=== PATIENT | female | born 1935 | race Caucasian/White ===

== ENCOUNTER 2019-05-31 21:11 | Emergency (ER) | payer OTHER ==
[~2019-05-31] VITALS: Ht 154.9 cm; Wt 72.6 kg
[2019-05-31] MEDS ORDERED: IV NS 0.9% 500 ML BAG IV ONE (21:30)
--- NOTE | 2019-05-31 21:30 | NUR ---
PT brought in by EMS c/o altered. Per son pt was seen by her family last night at 1999 which was the last known well time. Per son, pt was acting normally at that time. Pt was then seen by son in bed incontinent. Pt's son mentioned how him and his sister thought she had a facial droop. Pt unable to state name or . upon assessment, pt non verbal. Unable to follow comands. Placed in gown, on monitor, and pulse ox.
--- NOTE | 2019-05-31 21:40 | NUR ---
LABS COLLECTED AND SENT.
--- NOTE | 2019-05-31 21:42 | NUR ---
PT PLACED ON PADS, MOVED TO ROOM 8. On monitor.
[2019-05-31 21:50] LABS: BASOPHILS # (AUTO) 0.2 /CMM (0.0-0.2); BASOPHILS % (AUTO) 2.4 % (0.0-2.0); EOSINOPHILS % (AUTO) 0.7 % (0.0-6.0); HEMATOCRIT 44 % (33-45); HEMOGLOBIN 14.2 g/dL (11.5-14.8); LYMPHOCYTES # (AUTO) 1.6 /CMM (0.8-4.8); LYMPHOCYTES % (AUTO) 18.7 % (20.0-44.0); MEAN CORPUSCULAR HGB CONC 32 g/dl (31.0-36.0); MEAN CORPUSCULAR VOLUME 91 fL (82-100); MONOCYTES # (AUTO) 0.5 /CMM (0.1-1.30); MONOCYTES % (AUTO) 6.3 % (2.0-12.0); NEUTROPHILS # (AUTO) 6.1 /CMM (1.8-8.9); NEUTROPHILS % (AUTO) 71.9 % (43.0-81.0); PLATELET COUNT (AUTO) 198 /CMM (150-450); RED BLOOD CELL COUNT(AUTO) 4.84 MIL/uL (4.0-5.2); WHITE BLOOD COUNT (AUTO) 8.5 K/uL (4.3-11.0)
--- NOTE | 2019-05-31 21:58 | NUR ---
UNABLE TO OBTAIN URINE.
[2019-05-31 22:06] LABS: ALANINE AMINOTRANSFERASE 19 U/L (12-78); ALBUMIN 3.8 g/dL (3.4-5.0); ALKALINE PHOSPHATASE 71 U/L (46-116); ASPARTATE AMINOTRANSFERASE 18 U/L (15-37); BILIRUBIN,DIRECT 0.1 mg/dL (0.0-0.2); BILIRUBIN,TOTAL 0.4 mg/dL (0.2-1.0); CALCIUM, SERUM 9.9 mg/dL (8.5-10.1); CARBON DIOXIDE 31 mmol/L (21-32); CHLORIDE 105 mmol/L (98-107); CREATININE 1.3 mg/dL (0.6-1.3); GLUCOSE 129 mg/dL (74-106); POTASSIUM 4.8 mmol/L (3.5-5.1); SODIUM SERUM 142 mmol/L (136-145); TOTAL PROTEIN, SERUM 7.9 g/dL (6.4-8.2); UREA NITROGEN, BLOOD 24 mg/dL (7-18)
--- NOTE | 2019-05-31 22:40 | NUR ---
PT TAKEN TO CT
--- NOTE | 2019-05-31 22:53 | NUR ---
pt back from ct
--- NOTE | 2019-05-31 23:26 | NUR ---
[facility] CALLED.
[2019-05-31 23:43] LABS: APPEARANCE,URINE Clear (CLEAR); BILIRUBIN,URINE SMALL (NEGATIVE); BLOOD, URINE Negative Ery/uL (NEGATIVE); COLOR,URINE Orange (YELLOW); KETONES,URINE Negative (NEGATIVE); LEUKOCYTE ESTERASE ,URINE Negative (NEGATIVE); NITRITE, URINE Negative (NEGATIVE); PH,URINE 5.5 (5.0-8.0); PROTEIN,URINE Negative (NEGATIVE); UGLUCOSE Negative (NEGATIVE); UROBILINOGEN,URINE 0.2 EU/dL (0.2)
--- NOTE | 2019-05-31 23:53 | NUR ---
PT RESTING. STILL NON VERBAL. DAUGHTER AT BEDSIDE.
[2019-06-01] MEDS ORDERED: IV NS 0.9% 500 ML BAG IV ONE
--- NOTE | 2019-06-01 00:34 | NUR ---
CALL FROM [facility]. PT ACCEPTED TO [facility] ER BY DR AMAYA. # FOR REPORT [phone]. [facility] ETA 013
[2019-06-01 01:27] VITALS: BP 128/51
--- NOTE | 2019-06-01 01:35 | NUR ---
Sandra cantor in [facility] - 06/01/[address] REPORT GIVEN TO
--- NOTE | 2019-06-01 01:37 | NUR ---
REPORT GIVEN TO PATRICIA PLEITEZ
== END 2019-06-01 01:38 | disposition short-term general hospital (02) ==
LOC: ER 21:17
DX: R41.82 Altered mental status, unspecified (principal); I45.9 Conduction disorder, unspecified; I10 Essential (primary) hypertension; E11.9 Type 2 diabetes mellitus without complications
CPT/HCPCS: 36415; 70450; 71045; 80048; 80076; 81001; 82962; 83605; 84484; 85025; 85730; 87040 ×2; 87081; 93005 ×2; 99285; J7040 ×2; 81000-TC